=== PATIENT | male | born 1945 | race Caucasian/White ===

== ENCOUNTER → 2017-08-15 | Outpatient (CLI) | payer MEDICARE ==
--- NOTE | 2017-08-15 11:19 | RAD ---
Left wrist, 3 views, 08/15/2017: History: Wrist pain No fracture or dislocation is identified. There is considerable degenerative change at the first CMC joint with periarticular calcifications. IMPRESSION: 1. 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 2. No acute bony abnormality is detected.
== END | disposition home or self-care (01) ==
LOC: RAD 10:31
PROVIDERS: ATTEND General Practice
DX: M18.12 Unilateral primary osteoarthritis of first carpometacarpal joint, left hand (principal)
CPT/HCPCS: 73110

== ENCOUNTER → 2019-10-27 | Outpatient (CLI) | payer MEDICARE ==
--- NOTE | 2019-10-27 20:39 | RAD ---
Exam: VENOUS LOWER EXTREMITY RIGHT Indication: Reason: RT LEG KNEE PAIN / Spl. Instructions: / History: Technique: Color-flow and pulsed wave duplex ultrasound with compression of venous structures of the right lower extremity. Comparison: None Available. Findings: Duplex ultrasound with compression of the deep venous structures of the right lower extremity from the common femoral vein through the popliteal vein is negative for DVT. The posterior tibial and peroneal veins are segmentally visualized and patent where seen. Normal venous waveforms and augmentation are noted throughout. Fluid is noted in the popliteal fossa, which may represent a Morrell's cyst. Impression: No evidence for DVT in the right lower extremity. Electronically signed by: Delfino Dave MD (10/27/2019 8:36 PM) GAURAV
== END | disposition home or self-care (01) ==
LOC: US 19:14
PROVIDERS: ATTEND Physician Assistant Medical
DX: M79.604 Pain in right leg (principal)
CPT/HCPCS: 93971

== ENCOUNTER 2020-05-31 09:03 | Emergency (ER) | payer MEDICARE ==
[~2020-05-31] VITALS: Ht 172.7 cm; Wt 89.0 kg
--- NOTE | 2020-05-31 09:16 | PHYS DOC ---
Adult General Chief Complaint Chief Complaint: ALTERED MENTAL STATUS HPI HPI Patient is a 75-year-old male who presents via EMS for altered mental status. Patient who has no known diagnosed medical issues and takes no medications on a daily basis did not present for work today which concerned coworkers. Police were contacted who performed wellness call, patient answered firing and was not answering questions appropriately per police prompting EMS to be called. On arrival to his residence, patient was found in his recliner with several bottles of beer around him and required assistance getting up from recliner onto EMS gurney. Patient denies any concerning ingestions or recent sick contacts. Text messages to family members were found on patient's phone, patient stated that he was not feeling good for past 24 hours but did not disclose what symptoms he was feeling. On arrival to our facility, patient alert and oriented x3. Denies any symptoms besides generalized fatigue, no recent fever, no COVID-19 contact, no chest pain, shortness of breath, productive cough, abdominal pain, urinary symptoms, changes in motor or sensory function, no known neurologic deficits Review of Systems Review of Systems Fourteen body systems of review of systems have been reviewed. See HPI for p ertinent positives and negative responses, other desai all other systems are negative, non-pertinent or non-contributory Current Medications Current Medications Current Medications Medications (Trade) Dose Ordered Sig/Dilshad Start Time Stop Time Status Last Admin Dose Admin Aspirin (Aspirin Chewable) 324 mg 1X ONCE 05/31/20 09:30 05/31/20 10:26 DC Azithromycin (Zithromax) 500 mg STK-MED ONCE 05/31/20 11:40 05/31/20 11:40 DC Azithromycin 500 mg/Sodium Chloride 250 ml @ 250 mls/hr 1X ONCE 05/31/20 10:30 05/31/20 11:29 DC 05/31/20 11:50 250 MLS/HR Ceftriaxone Sodium 1 gm/ Sodium Chloride 50 ml @ 100 mls/hr 1X ONCE 05/31/20 10:30 05/31/20 10:59 DC 05/31/20 13:22 100 MLS/HR Ceftriaxone Sodium (Rocephin) 1 gm STK-MED ONCE 05/31/20 11:41 05/31/20 11:42 DC Heparin Sodium (Porcine) (Heparin Sodium) 2,250 unit PRN Q6HRS PRN 05/31/20 10:30 Heparin Sodium/ Dextrose 250 ml @ 10 mls/hr CONT PRN 05/31/20 10:30 05/31/20 11:55 10 MLS/HR Potassium Chloride (Klor-Con) 40 meq 1X ONCE 05/31/20 12:30 05/31/20 12:31 DC Sodium Chloride 50 ml @ As Directed STK-MED ONCE 05/31/20 11:41 05/31/20 11:41 DC Physical Exam Physical Exam Constitutional: Pt is oriented to person, place, and time. Poor hygiene, appears weak, unable to self transfer from EMS gurney to ER bed HEENT: Head: Normocephalic and atraumatic. TMs clear, no hemotympanum Conjunctivae and EOM are normal. Pupils are equal, round, and reactive to light. Oropharynx is clear and dry, poor dentition No hematomas or lacerations or abrasions to face or scalp OP clear, no blood, no malocclusion, dentition intact Nares clear, no nasal septal hematoma Midface stable Neck: C-spine midline nontender, no step-offs Cardiovascular: Tachycardic rate, irregular rhythm and normal heart sounds without obvious rubs or gallops Pulmonary/Chest: Tachypneic, no accessory muscle use, diminished lung sounds bilaterally with mild rhonchi heard in bilateral bases Abdominal: Soft. Bowel sounds are normal. Pt exhibits mild distension. There is no tend erness, guarding or rebound. No peritoneal signs present Musculoskeletal: No bony tenderness to extremities, no deformities, full ROM extremities Chest wall stable Pelvis stable and non-tender No vertebral TTP and spine without stepoffs Neurological: Pt is alert and oriented to person, place, and time. Leaning to his left on arrival, negative stroke screen Moving all extremities willfully, able to wiggle all fingers and toes Alert and oriented x 3 Sensory function intact Muscle strength 4/5 in all extremities which apparently is abnormal for patient Skin: Skin is warm and dry. No abrasions, no lacerations Psychiatric: Behavior is appropriate for situation Current Patient Data Vital Signs Vital Signs Date Time Temp Pulse Resp B/P (MAP) Pulse Ox O2 Delivery O2 Flow Rate FiO2 05/31/20 11:30 101 22 134/78 (96) 94 BiPAP/CPAP 05/31/20 11:15 99 26 135/75 (95) 95 BiPAP/CPAP 05/31/20 11:00 106 28 164/64 (97) 93 BiPAP/CPAP 05/31/20 10:45 104 24 112/74 (87) 95 BiPAP/CPAP 05/31/20 10:30 103 24 127/67 (87) 94 BiPAP/CPAP 05/31/20 10:15 101 28 122/73 (89) 97 BiPAP/CPAP 05/31/20 10:00 109 32 122/73 (89) 97 BiPAP/CPAP 05/31/20 09:45 106 34 118/81 (93) 97 NonRebreather Mask 15.0 05/31/20 09:30 112 30 130/85 (100) 85 NonRebreather Mask 15.0 05/31/20 09:05 99.4 111 30 138/80 (99) 63 Room Air Lab Results Laboratory Tests Test 05/31/20 09:07 05/31/20 09:17 05/31/20 10:07 05/31/20 11:25 White Blood Count 10.2 x10^3/uL Red Blood Count 5.33 x10^6/uL Hemoglobin 16.6 g/dL Hematocrit 48.2 % Mean Corpuscular Volume 90 fL Mean Corpuscular Hemoglobin 31 pg Mean Corpuscular Hemoglobin Concent 35 g/dL Red Cell Distribution Width 12.8 % Platelet Count 213 x10^3/uL Neutrophils (%) (Auto) 85 % Lymphocytes (%) (Auto) 5 % Monocytes (%) (Auto) 9 % Eosinophils (%) (Auto) 0 % Basophils (%) (Auto) 1 % Neutrophils # (Auto) 8.7 x10^3uL Lymphocytes # (Auto) 0.5 x10^3/uL Monocytes # (Auto) 0.9 x10^3/uL Eosinophils # (Auto) 0.0 x10^3/uL Basophils # (Auto) 0.1 x10^3/uL Prothrombin Time 10.9 SEC Prothromb Time International Ratio 1.1 Activated Partial Thromboplast Time 33 SEC Sodium Level 135 mmol/L Potassium Level 3.2 mmol/L Chloride Level 97 mmol/L Carbon Dioxide Level 22 mmol/L Anion Gap 16 Blood Urea Nitrogen 23 mg/dL Creatinine 1.2 mg/dL Estimated GFR (Cockcroft-Gault) 59.2 BUN/Creatinine Ratio 19 Glucose Level 153 mg/dL Calcium Level 8.1 mg/dL Magnesium Level 1.9 mg/dL Total Bilirubin 1.1 mg/dL Aspartate Amino Transf (AST/SGOT) 77 U/L Alanine Aminotransferase (ALT/SGPT) 53 U/L Alkaline Phosphatase 112 U/L Creatine Kinase 654 U/L Troponin I Quantitative 0.933 ng/mL [id number] Natriuretic Peptide 474 pg/mL Total Protein 7.0 g/dL Albumin 3.0 g/dL Albumin/Globulin Ratio 0.8 Thyroid Stimulating Hormone (TSH) 0.385 uIU/mL Salicylates Level < 2.8 mg/dL Salicylate Last Dose Date Unknown Salicylate Last Dose Time Unknown Acetaminophen Level < 2.0 mcg/mL Acetaminophen Last Dose Date Unknown Acetaminophen Last Dose Time Unknown Ethyl Alcohol Level < 10 mg/dL Blood Gas pH 7.43 7.50 Blood Gas PCO2 32 mmHg 29 mmHg Blood Gas PO2 57 mmHg 100 mmHg Blood Gas HCO3 21 mmol/L 22 mmol/L Arterial Bld O2 Saturation (Calc) 90 % 98 % FiO2 100 % 100 % Lactic Acid Level 1.7 mmol/L Test 05/31/20 12:42 05/31/20 12:54 Urine Collection Type Unknown Urine Color Melanie Urine Clarity Hazy Urine pH 6.0 Urine Specific [place] >=1.030 Urine Protein >100 mg/dl Urine Glucose (UA) Neg mg/dL Urine Ketones (Stick) 40 mg/dL Urine Blood Mod Urine Nitrite Neg Urine Bilirubin Neg Urine Urobilinogen Dipstick 4.0 mg/dL Urine Leukocyte Esterase Neg Urine RBC Rare /HPF Urine WBC Occ /HPF Urine Squamous Epithelial Cells Occ /LPF Urine Bacteria Few /HPF Urine Hyaline Casts Few /HPF Urine Granular Casts Occ /HPF Urine Mucus Marked /LPF Urine Opiates Screen Neg Urine Methadone Screen Neg Urine Barbiturates Neg Urine Phencyclidine Screen Neg Urine Amphetamine/Methamphetamine Neg Urine Benzodiazepines Screen Neg Urine Cocaine Screen Neg Urine Cannabinoids Screen Neg Urine Ethyl Alcohol Neg Troponin I Quantitative 1.475 ng/mL Current Medications Medications (Trade) Dose Ordered Sig/Dilshad Route PRN Reason Start Time Stop Time Status Last Admin Dose Admin Aspirin (Aspirin Chewable) 324 mg 1X ONCE PO 05/31/20 09:30 05/31/20 10:26 DC Heparin Sodium/ Dextrose 250 ml @ 10 mls/hr CONT PRN IV SEE I/O RECORD 05/31/20 10:30 05/31/20 11:55 10 MLS/HR Heparin Sodium (Porcine) (Heparin Sodium) 4,000 unit 1X ONCE IV 05/31/20 10:30 05/31/20 10:31 DC 05/31/20 11:54 4,000 UNIT Heparin Sodium (Porcine) (Heparin Sodium) 2,250 unit PRN Q6HRS PRN IV FOR PTT LESS THAN 24 SECONDS 05/31/20 10:30 Azithromycin 500 mg/Sodium Chloride 250 ml @ 250 mls/hr 1X ONCE IV 05/31/20 10:30 05/31/20 11:29 DC 05/31/20 11:50 250 MLS/HR Ceftriaxone Sodium 1 gm/ Sodium Chloride 50 ml @ 100 mls/hr 1X ONCE IV 05/31/20 10:30 05/31/20 10:59 DC 05/31/20 13:22 100 MLS/HR Sodium Chloride 250 ml @ As Directed STK-MED ONCE .ROUTE 05/31/20 11:39 05/31/20 11:40 DC Azithromycin (Zithromax) 500 mg STK-MED ONCE IV 05/31/20 11:40 05/31/20 11:40 DC Sodium Chloride 50 ml @ As Directed STK-MED ONCE .ROUTE 05/31/20 11:41 05/31/20 11:41 DC Ceftriaxone Sodium (Rocephin) 1 gm STK-MED ONCE .ROUTE 05/31/20 11:41 05/31/20 11:42 DC Potassium Chloride (Klor-Con) 40 meq 1X ONCE PO 05/31/20 12:30 05/31/20 12:31 DC EKG EKG Initial EKG ordered and interpreted by myself at 0918 hrs. as sinus rhythm at 121 bpm, no interval abnormalities, left axis deviation, no acute ischemic findings Repeat EKG performed after improvement in patient's respiratory status that was interpreted by myself at 1140 hrs. as sinus rhythm at 100 bpm, unremarkable intervals, left axis deviation, no ischemic findings, no STEMI Radiology/Procedures Radiology/Procedures XR CHEST 1V History: Reason: fatigue, low o2 / Spl. Instructions: / History: Comparison: None. Findings: Multifocal ill-defined opacities bilaterally. Low lung planes. No pleural effusion. No pneumothorax. Normal heart size. Impression: 1. Multifocal ill-defined opacities bilaterally, concerning for pneumonia including viral pneumonia. Electronically signed by: John Harvey DO (05/31/2020 9:43 AM) [id number] EXAM: Head CT without contrast. HISTORY: Decreased mentation. TECHNIQUE: Computed tomographic images of the head were obtained without contrast. *One or more of the following individualized dose reduction techniques were utilized for this examination: 1. Automated exposure control. 2. Adjustment of the mA and/or kV according to patient size. 3. Use of iterative reconstruction technique. COMPARISON: None. FINDINGS: The exam is limited due to motion. There is no hemorrhage. There is no mass effect or midline shift. There is no hydrocephalus. The murcia-white matter differentiation pattern is intact. The orbits and visualized portions of the paranasal sinuses mastoid air cells are unremarkable. There is no suspicious calvarial lesion. IMPRESSION: No acute intracranial findings. Note is made that MRI is more sensitive for acute infarction. Electronically signed by: Génesis Alcazar MD (05/31/2020 11:12 AM) [id number] EXAM: Abdomen and pelvis CT without intravenous contrast. HISTORY: Hematuria. TECHNIQUE: Computed tomographic images of the abdomen and pelvis were obtained without contrast. Multiplanar reformatting was performed. *One or more of the following individualized dose reduction techniques were utilized for this examination: 1. Automated exposure control. 2. Adjustment of the mA and/or kV according to patient size. 3. Use of iterative reconstruction technique. COMPARISON: None. FINDINGS: Evaluation of the lower thorax demonstrates extensive groundglass infiltrate superimposed on chronic interstitial changes and emphysema. There is a 4 mm pleural-based nodule within the lateral right middle lobe. The heart is prominent in size. There is a small hiatal hernia.. There is suspected fatty infiltration of the liver along the falciform ligament. The gallbladder is absent. The pancreas, spleen and adrenal glands are unremarkable. There is no appendicitis. There is no bowel obstruction. The urinary bladder is unremarkab le. The prostate is enlarged and contains calcifications. There is a small fat- containing left inguinal hernia and tiny fat-containing umbilical hernia. There is a prominent renal collecting system without connor hydronephrosis. There is nonspecific perinephric stranding. There is no evidence of nephroureterolithiasis. There is aortic and aortic branch vessel atherosclerosis. There is no aneurysm. There is no lymphadenopathy. There is no suspicious osseous lesion. There is multilevel degenerative change involving the spine. There is grade 1 anterolisthesis with a left pars defect at L5-S1. IMPRESSION: 1. Prominent bilateral renal collecting system without connor hydronephrosis or evidence of ureterolithiasis. The urinary bladder is distended and there is an enlarged prostate. Correlate for chronic outlet obstruction. 2. Diffuse interstitial infiltrate superimposed on chronic interstitial changes and emphysema. 3. Small fat-containing left internal hernia and tiny fat-containing umbilical hernia. Electronically signed by: Génesis Alcazar MD (05/31/2020 2:49 PM) [id number] Heart Score HEART Score for Chest Pain: HEART Score for Chest Pain Response (Comments) Value History Moderately Suspicious 1 ECG Nonspecific Repolarizatio 1 Age > 65 2 Risk Factors 1 or 2 Risk Factors 1 Troponin >3 x Normal Limit 2 Total 7 Risk Factors: Risk Factors: DM, Current or recent (<one month) smoker, HTN, HLP, family history of CAD, obesity. Risk Scores: Risk Factors: DM, Current or recent (<one month) smoker, HTN, HLP, family history of CAD, obesity. Course & Med Decision Making Course & Med Decision Making Airway patent, patient had increased work of breathing on arrival without any overt respiratory distress, patient was tachycardic, tachypneic, and saturating 63% on room air on EMS arrival Peripheral IV access x2 obtained, patient placed on 15 L nonrebreather with improvement of oxygen saturations into the mid 80s. Patient AO x3, reports he is tired without any other symptoms, no recent sick contacts, no home meds, no known medical diagnoses Comprehensive work-up obtained. No improvement in patient's breathing status with nonrebreather so patient put on BiPAP with significant improvement in respiratory status IV antibiotics initiated for suspected pneumonia. No known COVID-19 contact but chest x-ray concerning for findings similar of classic COVID-19, patient swabbed and test is pending Patient stabilized enough to perform further diagnostic work-up. CT head negative, heparin drip subsequently started for NSTEMI likely secondary to supply demand mismatch Patient found to have hematuria, admits difficulty with initiation of urination, CT abdomen pelvis performed and nonconcerning for any emergent/surgical process Cardiology service at [facility] called and case discussed, they agreed with current management and proposed plan of care for admission to [facility] for continued management On-call hospitalist at [facility] called and case discussed, he agreed need for admission and accepted patient under his care Patient and patient's daughter updated on proposed plan of care for hospital transfer and they were both amenable. All questions and concerns addressed prior to ER transfer via EMS Critical Care Time This patient required critical care. Due to the fact that the patient required a significant amount of one on one physician - patient contact time, ordering and review of studies, arranging urgent treatment with development of a management plan, evaluation of patients response to treatment with frequent reassessments, and discussions with other providers this patient required critical care time in excess of 30 minutes. Critical care time was indicated due to the inherent instability and/or potential for instability in this patient. The critical care time that is allocated to this patient is above and beyond any time spent on any other billable procedures performed on this patient. Dragon Disclaimer Dragon Disclaimer This electronic medical record was generated, in whole or in part, using a voice recognition dictation system. Departure Departure: Impression: Primary Impression: Acute respiratory failure with hypoxia Additional Impressions: Person under investigation for COVID-19 Bilateral pneumonia TIA (transient ischemic attack) NSTEMI (non-ST elevated myocardial infarction) Disposition: 02 DC/TRF OTHER SHORT TERM HOS ([facility]) Admitting Physician: Other (dr rodriguez) Condition: STABLE Referrals: MARY RIGGS (PCP) Problem Qualifiers FIDEL MONTE DO May 31, 2020 09:16
--- NOTE | 2020-05-31 09:22 | EKG ---
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
[2020-05-31] MEDS ORDERED: ASPIRIN CHEWABLE 81 MG TABLET. PO ONE (09:30)
--- NOTE | 2020-05-31 09:46 | RAD ---
XR CHEST 1V History: Reason: fatigue, low o2 / Spl. Instructions: / History: Comparison: None. Findings: Multifocal ill-defined opacities bilaterally. Low lung planes. No pleural effusion. No pneumothorax. Normal heart size. Impression: 1. Multifocal ill-defined opacities bilaterally, concerning for pneumonia including viral pneumonia. Electronically signed by: John Harvey DO (05/31/2020 9:43 AM) [id number]
[2020-05-31 09:51] LABS: BASO # 0.1 x10^3/uL (0.0-0.2); BASO % 1 % (0-3); EOS % 0 % (0-3); HEMATOCRIT 48.2 % (39.0-53.0); HEMOGLOBIN 16.6 g/dL (13.0-17.5); LYMPH # 0.5 x10^3/uL (1.0-4.8); LYMPH % 5 % (24-48); MEAN CORPUSCULAR HEMOGLOBIN 31 pg (25-35); MEAN CORPUSCULAR HGB CONC 35 g/dL (31-37); MEAN CORPUSCULAR VOLUME 90 fL (79-100); MONO # 0.9 x10^3/uL (0.0-1.1); MONO % 9 % (0-9); NEUT # 8.7 x10^3uL (1.8-7.7); NEUT % 85 % (31-73); PLATELET COUNT 213 x10^3/uL (140-400); RED BLOOD COUNT 5.33 x10^6/uL (4.30-5.70); RED CELL DISTRIBUTION WIDTH 12.8 % (11.5-14.5); WHITE BLOOD COUNT 10.2 x10^3/uL (4.0-11.0)
[2020-05-31 09:58] LABS: CALCIUM 8.1 mg/dL (8.5-10.1); CREATININE 1.2 mg/dL (0.7-1.3); GFR 59.2; POTASSIUM 3.2 mmol/L (3.5-5.1)
[2020-05-31 10:00] LABS: ACETAMIN < 2.0 mcg/mL (10-30); ETHANOL < 10 mg/dL (0-10); SALIC < 2.8 mg/dL (2.8-20.0)
[2020-05-31 10:07] LABS: BGAS PH 7.43 (7.35-7.46)
[2020-05-31 10:11] LABS: ALBUMIN/GLOBULIN RATIO 0.8 (1.0-1.7); MAGNESIUM 1.9 mg/dL (1.8-2.4); TOTAL BILIRUBIN 1.1 mg/dL (0.2-1.0)
[2020-05-31] MEDS ORDERED: HEPARIN for IV BOLUS 10,000 UNIT/10 ML VIAL. IV ONE (10:30)
[2020-05-31] MEDS ORDERED: HEPARIN for IV BOLUS 10,000 UNIT/10 ML VIAL. IV PRN (10:30)
[2020-05-31] MEDS ORDERED: HEPARIN 25,000UTS/250ML PREMIX 250 ML IV PRN (10:30)
[2020-05-31] MEDS ORDERED: AZITHROMYCIN 500 MG in IV NORMAL SALINE 250ML 250 ML IV ONE (10:30)
--- NOTE | 2020-05-31 11:14 | RAD ---
EXAM: Head CT without contrast. HISTORY: Decreased mentation. TECHNIQUE: Computed tomographic images of the head were obtained without contrast. *One or more of the following individualized dose reduction techniques were utilized for this examina tion: 1. Automated exposure control. 2. Adjustment of the mA and/or kV according to patient size. 3. Use of iterative reconstruction technique. COMPARISON: None. FINDINGS: The exam is limited due to motion. There is no hemorrhage. There is no mass effect or midli ne shift. There is no hydrocephalus. The murcia-white matter differentiation pattern is intact. The orb its and visualized portions of the paranasal sinuses mastoid air cells are unremarkable. There is no suspicious calvarial lesion. IMPRESSION: No acute intracranial findings. Note is made that MRI is more sensitive for acute infarction. Electronically signed by: Génesis Alcazar MD (05/31/2020 11:12 AM) [id number]
[2020-05-31] MEDS ORDERED: IV NORMAL SALINE 250ML 250 ML ONE (11:39)
[2020-05-31] MEDS ORDERED: AZITHROMYCIN 500 MG VIAL. IV ONE (11:40)
[2020-05-31] MEDS ORDERED: IV NORMAL SALINE 50ML 50 ML ONE (11:41)
[2020-05-31] MEDS ORDERED: cefTRIAXone SODIUM 1 GM VIAL ONE (11:41)
[2020-05-31 11:58] LABS: BGAS PH 7.5 (7.35-7.46)
--- NOTE | 2020-05-31 12:25 | EKG ---
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
[2020-05-31] MEDS ORDERED: POTASSIUM CHLORIDE 20 MEQ TABLET.ER. PO ONE ×2 (12:30→18:30)
[2020-05-31 13:04] LABS: BILIRUBIN,URINE NEG (NEG); CLARITY,URINE HAZY; COLOR,URINE AMBER; GLUCOSE,URINE NEG (NEG); NITRITE,URINE NEG (NEG); RBC,URINE RARE /HPF (0-2)
[2020-05-31 13:05] LABS: BACTERIA,URINE FEW /HPF (0-FEW); GRANULAR CASTS,URINE OCC /HPF; HYALINE CASTS, URINE FEW /HPF; SQUAMOUS EPITHELIAL CELL,UR OCC /LPF; WBC,URINE OCC /HPF (0-4)
[2020-05-31 13:11] LABS: BARBITURATES NEG (NEG); BENZODIAZEPINES NEG (NEG); CANNABINOIDS NEG (NEG); COCAINE NEG (NEG); METHADONE NEG (NEG); OPIATES NEG (NEG); PHENCYCLIDINE NEG (NEG)
[2020-05-31 13:12] LABS: AMPHETAMINE/METHAMPHETAMINE NEG (NEG)
--- NOTE | 2020-05-31 14:51 | RAD ---
EXAM: Abdomen and pelvis CT without intravenous contrast. HISTORY: Hematuria. TECHNIQUE: Computed tomographic images of the abdomen and pelvis were obtained without contrast. Mult iplanar reformatting was performed. *One or more of the following individualized dose reduction techniques were utilized for this examina tion: 1. Automated exposure control. 2. Adjustment of the mA and/or kV according to patient size. 3. Use of iterative reconstruction technique. COMPARISON: None. FINDINGS: Evaluation of the lower thorax demonstrates extensive groundglass infiltrate superimposed o n chronic interstitial changes and emphysema. There is a 4 mm pleural-based nodule within the lateral right middle lobe. The heart is prominent in size. There is a small hiatal hernia.. There is suspect ed fatty infiltration of the liver along the falciform ligament. The gallbladder is absent. The pancr eas, spleen and adrenal glands are unremarkable. There is no appendicitis. There is no bowel obstruct ion. The urinary bladder is unremarkable. The prostate is enlarged and contains calcifications. There is a small fat-containing left inguinal hernia and tiny fat-containing umbilical hernia. There is a prominent renal collecting system without connor hydronephrosis. There is nonspecific perin ephric stranding. There is no evidence of nephroureterolithiasis. There is aortic and aortic branch v essel atherosclerosis. There is no aneurysm. There is no lymphadenopathy. There is no suspicious osse ous lesion. There is multilevel degenerative change involving the spine. There is grade 1 anterolisth esis with a left pars defect at L5-S1. IMPRESSION: 1. Prominent bilateral renal collecting system without connor hydronephrosis or evidence of ureterolit hiasis. The urinary bladder is distended and there is an enlarged prostate. Correlate for chronic out let obstruction. 2. Diffuse interstitial infiltrate superimposed on chronic interstitial changes and emphysema. 3. Small fat-containing left internal hernia and tiny fat-containing umbilical hernia. Electronically signed by: Génesis Alcazar MD (05/31/2020 2:49 PM) [id number]
[2020-05-31 18:00] VITALS: BP 121/76
== END 2020-05-31 19:14 | disposition short-term general hospital (02) ==
LOC: ER 09:03
DX: U07.1 COVID-19 (principal); J96.01 Acute respiratory failure with hypoxia; J12.82 Pneumonia due to coronavirus disease 2019; G45.9 Transient cerebral ischemic attack, unspecified; I21.4 Non-ST elevation (NSTEMI) myocardial infarction
CPT/HCPCS: 36415; 36600; 70450; 71045; 74176; 80053; 80307; 80329; 81001; 82550; 82803; 83605; 83735; 83880; 84443; 84484; 85025; 85610; 85730; 87040; 93005; 94660; 96365; 96366; 96368; 96376; 99291; 99292; C9803; G0480; J0456; J0696; J1644; J7050; U0003